=== PATIENT | female | born 1945 | race Caucasian/White ===

== ENCOUNTER 2020-10-04 09:53 | Outpatient (CLI) | payer MEDICARE, SELFPAY ==
--- NOTE | ~2020-10-04 | DEXA_ITS ---
Bone Density Report Name: Malka Peres Age: 75 Sex: Female Ethnicity: White Date of : 1945 Indication: postmenopausal; height loss; prior fracture; Referring Provider: MARTIR, MORE Vega Study: Bone densitometry was performed. Exam Date: October 04, 2020 Accession number: [id number] Bone Density: Region BMD T-score Z-score Classification AP Spine (L1, L3) 1.363 3.2 5.6 Normal Femoral Neck (Left) 0.678 -1.5 0.6 Osteopenia Total Hip (Left) 0.902 -0.3 1.6 Normal Total Hip Bilateral Avg 0.903 -0.3 1.6 Normal Femoral Neck (Right) 0.733 -1.0 1.1 Normal Total Hip (Right) 0.902 -0.3 1.6 Normal World Health Organization criteria for BMD impression classify patients as: Normal (T-score at or above -1.0), Osteopenia (T-score between -1.0 and -2.5), or Osteoporosis (T-score at or below -2.5). 10-year Fracture Risk(1): Major Osteoporotic Fracture 18% Hip Fracture 3.4% Reported Risk Factors: [place] (), Neck BMD=0.678, BMI=32.1, previous fracture (1) FRAX(R) Version 3.08. Fracture probability calculated for an untreated patient. Fracture probability may be lower if the patient has received treatment. Previous Exams: Region Exam Age BMD T-score BMD Change BMD Change Date g/cm2 vs Baseline vs Previous AP Spine(L1, L3) 10/04/2020 75 1.363 3.2 0.456(50.3%)# 0.365(36.6%)* 03/22/2014 68 0.998 -0.1 0.091(10.1%)# 0.009(1.0%)# 02/20/2012 66 0.989 -0.2 0.082(9.0%)# 0.068(7.3%)# 12/01/2007 62 0.921 -0.8 0.014(1.6%) 0.014(1.6%) 11/19/2005 60 0.907 -1.0 Total Hip(Left) 10/04/2020 75 0.902 -0.3 0.021(2.4%)# -0.011(-1.2%) 06/24/2018 73 0.913 -0.2 0.032(3.6%)# 0.044(5.0%)* 06/10/2016 70 0.870 -0.6 -0.012(-1.3%)# -0.011(-1.2%) 03/22/2014 68 0.880 -0.5 -0.001(-0.1%)# -0.008(-0.9%)# 02/20/2012 66 0.888 -0.4 0.007(0.8%)# 0.006(0.7%)# 12/13/2009 64 0.882 -0.5 0.000(0.0%) 0.039(4.6%)* 12/01/2007 62 0.843 -0.8 -0.038(-4.3%)* -0.038(-4.3%)* 11/19/2005 60 0.881 -0.5 Total Hip(Right) 10/04/2020 75 0.902 -0.3 0.005(0.6%)# 0.015(1.7%) 06/24/2018 73 0.887 -0.5 -0.010(-1.1%)# -0.005(-0.6%) 06/10/2016 70 0.892 -0.4 -0.004(-0.5%)# -0.003(-0.4%) 03/22/2014 68 0.895 -0.4 -0.001(-0.1%)# -0.005(-0.6%)# 02/20/2012 66 0.901 -0.3 0.004(0.5%)# 0.051(6.0%)# 12/13/2009 64 0.850 -0.8 -0.047(-5.2%)* -0.025(-2.9%) 12/01/2007 62 0.875 -0.5 -0.022(-2.4%) -0.022(-2.4%) 11/19/2005 60 0.897 -0.4 *Denotes sig
== END 2020-10-04 09:54 | disposition home or self-care (01) ==
LOC: ANHIMG 09:56
PROVIDERS: PCP Internal Medicine; Visit Provider Internal Medicine
DX: Z13.820 Encounter for screening for osteoporosis (principal); Z78.0 Asymptomatic menopausal state; M81.0 Age-related osteoporosis without current pathological fracture; M85.852 Other specified disorders of bone density and structure, left thigh
CPT/HCPCS: 77080

== ENCOUNTER 2022-10-16 13:40 | Outpatient (CLI) | payer MEDICARE, SELFPAY ==
--- NOTE | ~2022-10-16 | DEXA_ITS ---
Bone Density Report Name: NICOLAS ESCOBEDO Age: 77 Sex: Female Ethnicity: White Date of : 1945 Indication: postmenopausal; screening for osteoporosis; height loss; prior fracture; Referring Provider: GWEN HARRIS Study: Bone densitometry was performed. Exam Date: October 16, 2022 Accession number: [id number] Bone Density: Region BMD T-score Z-score Classification AP Spine(L1, L2, L3) 1.432 3.8 6.3 Normal Femoral Neck (Left) 0.634 -1.9 0.3 Osteopenia Total Hip (Left) 0.849 -0.8 1.3 Normal Femoral Neck (Right) 0.732 -1.1 1.2 Osteopenia Total Hip (Right) 0.912 -0.2 1.8 Normal Total Hip Mean 0.881 -0.5 1.6 Normal World Health Organization criteria for BMD impression classify patients as: Normal (T-score at or above -1.0), Osteopenia (T-score between -1.0 and -2.5), or Osteoporosis (T-score at or below -2.5). 10-year Fracture Risk(1): Major Osteoporotic Fracture 21% Hip Fracture 5.1% Reported Risk Factors: [place] (), Neck BMD=0.634, BMI=32.1, previous fracture (1) FRAX(R) Version 3.08. Fracture probability calculated for an untreated patient. Fracture probability may be lower if the patient has received treatment. Previous Exams: Region Exam Age BMD T-score BMD Change BMD Change Date g/cm2 vs Baseline vs Previous AP Spine (L1-L3) 10/16/2022 77 1.432 3.8 0.450 (45.8%)* 0.450 (45.8%)* 03/22/2014 68 0.982 -0.3 Total Hip(Left) 10/16/2022 77 0.849 -0.8 -0.031 (-3.5%) -0.053 (-5.9%) 10/04/2020 75 0.902 -0.3 0.022 (2.5%) -0.011 (-1.2%) 06/24/2018 73 0.913 -0.2 0.033 (3.7%)* 0.044 (5.0%)* 06/10/2016 70 0.870 -0.6 -0.011 (-1.2%) -0.011 (-1.2%) 03/22/2014 68 0.880 -0.5 Total Hip(Right) 10/16/2022 77 0.912 -0.2 0.017 (1.9%) 0.011 (1.2%) 10/04/2020 75 0.902 -0.3 0.006 (0.7%) 0.015 (1.7%) 06/24/2018 73 0.887 -0.5 -0.009 (-1.0%) -0.005 (-0.6%) 06/10/2016 70 0.892 -0.4 -0.003 (-0.4%) -0.003 (-0.4%) 03/22/2014 68 0.895 -0.4 *Denotes significance at 95% confidence level, LSC for AP Spine = 0.022 g/cm2, LSC for Total Hip = 0.027 g/cm2 Clinical Information Provided by Patient: Has had a low trauma fracture Has used the following medications: Vitamin D, Calcium Patient maximum height was 63 Menopause Age: 48 Drinks caffeinated beverages Onset of menses at age 8 Number of children 2 Impression: The patient has low bon
== END 2022-10-16 13:41 | disposition home or self-care (01) ==
PROVIDERS: PCP Internal Medicine; Visit Provider Registered Nurse
DX: M85.80 Other specified disorders of bone density and structure, unspecified site (principal); M85.852 Other specified disorders of bone density and structure, left thigh; M85.851 Other specified disorders of bone density and structure, right thigh
CPT/HCPCS: 77080

== ENCOUNTER 2024-12-29 08:25 | Outpatient (CLI) | payer MEDICARE, SELFPAY ==
--- NOTE | ~2024-12-29 | DEXA_ITS ---
Bone Density Report Name: NICOLAS ESCOBEDO Age: 79 Sex: Female Ethnicity: White Date of : 1945 Indication: postmenopausal; screening for osteoporosis; height loss; prior fracture; Referring Provider: POLI MIRZA Study: Bone densitometry was performed. Exam Date: December 29, 2024 Accession number: [id number] Bone Density: Region BMD T-score Z-score Classification AP Spine(L1, L3) 1.399 3.5 6.2 Normal Femoral Neck (Left) 0.704 -1.3 1.1 Osteopenia Total Hip (Left) 0.812 -1.1 1.1 Osteopenia Femoral Neck (Right) 0.796 -0.5 1.9 Normal Total Hip (Right) 0.905 -0.3 1.8 Normal Total Hip Mean 0.859 -0.7 1.5 Normal World Health Organization criteria for BMD impression classify patients as: Normal (T-score at or above -1.0), Osteopenia (T-score between -1.0 and -2.5), or Osteoporosis (T-score at or below -2.5). 10-year Fracture Risk(1): Major Osteoporotic Fracture 18% Hip Fracture 3.7% Reported Risk Factors: [place] (), Neck BMD=0.704, BMI=31.1, previous fracture (1) FRAX(R) Version 3.08. Fracture probability calculated for an untreated patient. Fracture probability may be lower if the patient has received treatment. Previous Exams: -- Region Exam Age BMD T-score BMD Change BMD Change Date g/cm2 vs Baseline vs Previous -- AP Spine (L1,L3) 12/29/2024 79 1.399 3.5 2.0%* 2.0%* 10/16/2022 77 1.372 3.3 Total Hip(Left) 12/29/2024 79 0.812 -1.1 -4.4%* -4.4%* 10/16/2022 77 0.849 -0.8 Total Hip(Right) 12/29/2024 79 0.905 -0.3 -0.8% -0.8% 10/16/2022 77 0.912 -0.2 -- *Denotes significance at 95% confidence level, LSC for AP Spine = 0.022 g/cm2, LSC for Total Hip = 0.027 g/cm2 Clinical Information Provided by Patient: Has had a low trauma fracture Has used the following medications: Fosamax (i.e. alendronate), Vitamin D, Calcium Patient maximum height was 63 Menopause Age: 48 Drinks caffeinated beverages Onset of menses at age 8 Number of children 2 Impression: The patient has low bone mass, based on the Left Femoral Neck T-score. The patient has an estimated ten-year risk of hip fracture of 3.7% and an estimated ten-year risk of major fracture of 18%, based on the WHO FRAX algorithm. The patient has risk factors, including: previous fracture. The BMD for the Total Hip(Left) decreased, changing by -4.4% since the last DXA exam. Discussion: BONE DENSITY IS LOW AT ONE OR MORE SKELETAL SITES. THE PATIENT'S BMD AND CLINICAL RISK FACTORS CONTRIBUTE TO THIS PATIENT'S INCREASED RISK OF FRACTURE. This patient's lowest T-score is low at one or more skeletal sites. It meets the World Health Organization's (WHO) criteria for ?low bone mass? (T-score between -1.0 and -2.5). The patient's 10-year risk of hip fracture as calculated by FRAX exceeds the threshold where pharmacological therapy is recommended by the National Osteoporosis Foundation (NOF). However, all treatment decisions require clinical judgment and consideration of individual patient factors, including patient preferences, comorbidities, previous drug use, risk factors not captured in the FRAX model (e.g., frailty, falls, vitamin D deficiency, increased bone turnover, interval significant decline in bone density) and possible under or overestimation of fracture risk by FRAX. The patient should follow a healthful lifestyle (good nutrition with adequate calcium and vitamin D, and appropriate weight-bearing exercise). Follow-Up: Consider a repeat BMD and Vertebral Fracture Assessment (VFA) exam in 2 years or sooner if medically necessary, to reassess this patient's status. Reported by: HERLINDA on 12/29/2024 9:03:00 AM. Reviewed, dictated and finalized at location A.
== END 2024-12-29 08:26 | disposition home or self-care (01) ==
LOC: MICIMG 08:26
PROVIDERS: PCP Internal Medicine; Visit Provider Obstetrics & Gynecology
DX: Z78.0 Asymptomatic menopausal state (principal); M85.852 Other specified disorders of bone density and structure, left thigh
CPT/HCPCS: 77080